=== PATIENT | male | born 1980 | race Caucasian/White ===

== ENCOUNTER 2021-07-13 12:22 | Emergency (ER) | payer SELFPAY ==
[2021-07-13 12:45] VITALS: BP 132/85; PULSE 100; RESP 20; TEMP 36.4; O2SAT 100
[2021-07-13 12:46] VITALS: BP 132/85; PULSE 100; RESP 20; TEMP 36.4; O2SAT 100
--- NOTE | 2021-07-13 12:51 | ED_ITS ---
HPI - Ear Problem General Chief complaint: Ear Stated complaint: Lt Ear Pain History of Present Illness HPI Narrative: This is a 40 year old male that states his ear has been hurting for several days and it feel like a ear infection he has been taking antihistimine but he it is not helping and would like to see if he has another ear infection as he previously had some ear drops and itdid nto work Related Data Allergies Allergy/AdvReac Type Severity Reaction Status Date / Time No Known Allergies Allergy Verified 07/13/21 12:46 Review of Systems Review of Systems: left ear throbbing and aches All systems reviewed & are unremarkable except as noted in HPI and below PMFSH Comments At time as signature, I have reviewed and agree with nursing past medical, social, surgical and family history. Please see nursing chart for further information. There is no relevant family history pertinent to the presenting complaint. Exam Narrative: GENERAL:Well-appearing, well-nourished, and in no acute distress. HEAD:Normocephalic, EYES: PERRLA ENT: Nares clear, Mucous membranes moist. TM bulging cloudy fluid NECK: Supple. CHEST: No respiratory distress. EXTREMITIES: Normal range of motion. No edema. SKIN: Warm, dry, no rash. NEURO: No focal deficits. Alert and oriented x3. Course Course Level of Care: Express Care Visit Vital Signs Vital signs: Vital Signs Temperature 97.6 F 07/13/21 12:45 Pulse Rate 100 07/13/21 12:45 Respiratory Rate 20 07/13/21 12:45 Blood Pressure 132/85 07/13/21 12:45 Pulse Oximetry 100 07/13/21 12:45 Temperature 97.6 F 07/13/21 12:46 Pulse Rate 100 07/13/21 12:46 Respiratory Rate 20 07/13/21 12:46 Blood Pressure 132/85 07/13/21 12:46 Pulse Oximetry 100 07/13/21 12:46 Medical Decision Making Vital Signs Vital Signs: Vital Signs Temperature 97.6 F 07/13/21 12:45 Pulse Rate 100 07/13/21 12:45 Respiratory Rate 20 07/13/21 12:45 Blood Pressure 132/85 07/13/21 12:45 Pulse Oximetry 100 07/13/21 12:45 Temperature 97.6 F 07/13/21 12:46 Pulse Rate 100 07/13/21 12:46 Respiratory Rate 20 01/24/22 12:46 Blood Pressure 132/85 07/13/21 12:46 Pulse Oximetry 100 07/13/21 12:46 Discharge Plan Discharge Clinical Impression: Otitis media Qualifiers: Otitis media type: unspecified Chronicity: subacute Qualified Code(s): H66.90 - Otitis media, unspecified, unspecified ear Patient Disposition: Home, Self-Care Condition: Stable Instructions: Antibiotic Form, Ear Infection (ED), Earache (ED), Fluid In The Ear (Serous Otitis Media) (ED) Prescriptions: New fexofenadine [Trice Allergy] 180 mg tablet 180 mg PO DAILY Qty: 30 RF: 0 amoxicillin 500 mg capsule 500 mg PO Q12H 10 Days Qty: 20 RF: 0 Follow-up/Referrals: PHYSICIAN,APPLICATIONS DEVELOPMENT CONSULTANT [Primary Care Provider] - Stand Alone Forms: Work/School Release IP Time of Disposition: 12:56
== END 2021-07-13 13:00 | disposition home or self-care (01) ==
PROVIDERS: Emergency Provider Nurse Practitioner Family
DX: H66.90 Otitis media, unspecified, unspecified ear (principal)
CPT/HCPCS: 99203; G0463

== ENCOUNTER 2021-08-02 15:52 | Emergency (ER) | payer OTHER, SELFPAY ==
[2021-08-02 15:59] VITALS: BP 126/75; PULSE 100; RESP 18; TEMP 36.2; O2SAT 100
--- NOTE | 2021-08-02 16:17 | ED.EAR ---
HPI - Ear Problem General Chief complaint: Ear Stated complaint: Lt Ear Pain Time Seen by Provider: 08/02/21 16:08 Source: patient, RN notes reviewed and old records reviewed Mode of arrival: ambulatory Limitations: no limitations History of Present Illness HPI Narrative: Patient presents today complaining of left ear pain, popping, and muffled hearing since last night. Patient was treated for otitis media in the same ear 3 weeks ago and states that that infection had since resolved. Denies any additional symptoms. Currently rates his pain 310 and has been taking Trice-D without relief. MD Complaint: ear pain and decreased hearing Related Data Home Medications Medication Instructions Recorded Confirmed melatonin 5 mg PO HS PRN 08/02/21 08/02/21 Allergies Allergy/AdvReac Type Severity Reaction Status Date / Time No Known Allergies Allergy Verified 08/02/21 16:04 Review of Systems Review of Systems: CONSTITUTIONAL: Denies body aches, fever, chills, or sweats. EYES: Denies visual changes, redness, or discharge. ENT: Denies rhinorrhea, congestion, sore throat. + Left ear pain, muffled hearing, popping CARDIOVASCULAR: Denies chest pain, palpitations, or edema. RESPIRATORY: Denies cough or dyspnea. GASTROINTESTINAL: Denies abdominal pain, nausea, vomiting, or diarrhea. GENITOURINARY: Denies dysuria or hematuria. SKIN: Denies rash, itching, or wounds. MUSCULOSKELETAL: Denies back pain, joint pain, or myalgia. NEUROLOGIC: Denies headache, numbness, tingling, or weakness. PSYCH: Denies depression or anxiety. PMFSH Comments At time of signature, I have reviewed and agree with nursing past medical, surgical, social and family history unless otherwise noted. Please see nursing chart for further information. There is no relevant family history pertinent to the presenting complaint Exam Narrative: GENERAL: Well-appearing, well-nourished, and in no acute distress. HEAD: Normocephalic, atraumatic. EYES: EOMI. No redness or drainage. Conjunctivae normal. ENT: Mucous membranes pink and moist. Nares clear. No rhinorrhea. Right TM normal. Left TM bulging with middle ear effusion. No evidence of bacterial infection. NECK: Normal AROM. Supple. No lymphadenopathy. CHEST: No respiratory distress. EXTREMITIES: Normal range of motion. No edema. SKIN: Warm, dry, no rash. Capillary refill normal. Normal skin turgor. NEURO: No focal deficits. Alert and oriented x3. Gait steady. PSYCH: Normal affect. No signs of depression or anxiety. Course Course Level of Care: Express Care Visit Vital Signs Vital signs: Vital Signs Temperature 97.1 F L 08/02/21 15:59 Pulse Rate 100 08/02/21 15:59 Respiratory Rate 18 08/02/21 15:59 Blood Pressure 126/75 08/02/21 15:59 Pulse Oximetry 100 08/02/21 15:59 Temperature 97.1 F L 08/02/21 15:59 Pulse Rate 100 08/02/21 15:59 Respiratory Rate 18 08/02/21 15:59 Blood Pressure 126/75 08/02/21 15:59 Pulse Oximetry 100 08/02/21 15:59 Reviewed. Pt has been instructed to follow up with his PCP regarding his elevated blood pressure today. Medical Decision Making Differential Diagnosis Differential Diagnosis: Otitis media, otitis externa, ruptured TM, serous otitis, eustachian tube dysfunction, cerumen impaction Vital Signs Vital Signs: Vital Signs Temperature 97.1 F L 08/02/21 15:59 Pulse Rate 100 08/02/21 15:59 Respiratory Rate 18 08/02/21 15:59 Blood Pressure 126/75 08/02/21 15:59 Pulse Oximetry 100 08/02/21 15:59 Temperature 97.1 F L 08/02/21 15:59 Pulse Rate 100 08/02/21 15:59 Respiratory Rate 18 08/02/21 15:59 Blood Pressure 126/75 08/02/21 15:59 Pulse Oximetry 100 08/02/21 15:59 Critical Care Time Critical Care Time Critical Care Time: No Discharge Plan Discharge Clinical Impression: Acute serous otitis media, left ear Qualifiers: Recurrence: not specified as recurrent Qualified Code(s): H65.02 - Acut
== END 2021-08-02 16:24 | disposition home or self-care (01) ==
PROVIDERS: Emergency Provider Nurse Practitioner
DX: H65.02 Acute serous otitis media, left ear (principal)
CPT/HCPCS: 99211; G0463

== ENCOUNTER 2023-02-26 18:19 | Emergency (ER) | payer OTHER, SELFPAY ==
--- NOTE | 2023-02-26 18:24 | ED.GENADULT ---
HPI - General Adult General Chief complaint: Skin/Abscess/Foreign Body Stated complaint: Insect Bite Rt Hand Lt Wrist Time Seen by Provider: 02/26/23 18:25 Source: patient Mode of arrival: ambulatory Limitations: no limitations History of Present Illness HPI narrative: 42-year-old male patient presents to the [facility] with complaints of what he thinks is a spider bite to the left wrist and right middle finger. Patient states he woke up this morning and noticed there was redness, swelling warmth to the touch but only rates his pain 1/10. Patient states he did try putting ice on it but did not take any oral medications or antihistamines prior to arrival. Related Data Home Medications Medication Instructions Recorded Confirmed melatonin 5 mg tablet 5 mg PO HS PRN Sleep 08/02/21 02/26/23 Allergies Allergy/AdvReac Type Severity Reaction Status Date / Time No Known Allergies Allergy Verified 02/26/23 18:26 Review of Systems Review of Systems: CONSTITUTIONAL: Denies fever, chills, or sweats. EYES: Denies visual changes, redness, or discharge. ENT: Denies rhinorrhea, congestion, sore throat, or otalgia. CARDIOVASCULAR: Denies chest pain, palpitations, or edema. RESPIRATORY: Denies cough or dyspnea. GASTROINTESTINAL: Denies abdominal pain, nausea, vomiting, or diarrhea. GENITOURINARY: Denies dysuria or hematuria. SKIN: Denies rash or itching. Positive redness, swelling to left wrist and right middle finger MUSCULOSKELETAL: Denies back pain, joint pain, or myalgia. NEUROLOGIC: Denies headache, numbness, or weakness. PSYCHIATRIC: Denies anxiety or depression. PMFSH Comments At the time of my signature I agree with nursing past medical history, surgical, social, and family history. There is no relevant family history pertinent to the presenting complaint. Exam Narrative: GENERAL: Well-appearing, well-nourished, and in no acute distress. HEAD: Normocephalic, atraumatic. EYES: PERRLA and EOMI. ENT: Nares clear, no rhinorrhea or epistaxis. Mucous membranes moist. NECK: Supple. No lymphadenopathy CHEST: Clear to auscultation. No respiratory distress. HEART: Regular rate and rhythm. No murmur heard. Normal peripheral pulses. ABDOMEN: Soft, nontender, nondistended, normal active bowel sounds. EXTREMITIES: Normal range of motion. No edema. SKIN: Warm, dry, no rash. patient has swelling and redness with warmth to the touch to right middle finger that extends up to the middle of the dorsal side of the hand. Patient also has of clear yellow purulent drainage bite area to the left with wrist with surrounding erythema and warmth present no streaking noted. NEURO: No focal deficits. Alert and oriented x3. Course Course Level of Care: Express Care Visit Vital Signs Vital signs: Vital Signs Temperature 36.2 C L 02/26/23 18:25 Pulse Rate 97 02/26/23 18:25 Respiratory Rate 18 02/26/23 18:25 Blood Pressure 133/74 02/26/23 18:25 Pulse Oximetry 98 02/26/23 18:25 Oxygen Delivery Room Air 02/26/23 18:25 Temperature 36.2 C L 02/26/23 18:26 Pulse Rate 97 02/26/23 18:26 Respiratory Rate 18 02/26/23 18:26 Blood Pressure 133/74 02/26/23 18:26 Pulse Oximetry 98 02/26/23 18:26 Oxygen Delivery Room Air 02/26/23 18:26 Vital signs reviewed Medical Decision Making MDM Narrative Medical decision making narrative: Plan care for patient's discharge him home with oral antibiotics for possible cellulitis infection. Patient may also take [id number] antihistamine such as Benadryl to help with any itching or allergic reaction may continue use ice as well as Tylenol or ibuprofen as needed for pain Differential Diagnosis Differential Diagnosis: differential diagnosis: Contact dermatitis, poison staci, poison sumac, psoriasis, eczema, allergic reaction, drug reaction, scabies, tinea syphilis, lung disease, viral exanthema, pityriasis, erythema multiforme. Vital Signs Vital Signs:
[2023-02-26 18:25] VITALS: BP 133/74; PULSE 97; RESP 18; TEMP 36.2; O2SAT 98
[2023-02-26 18:26] VITALS: BP 133/74; PULSE 97; RESP 18; TEMP 36.2; O2SAT 98
== END 2023-02-26 18:40 | disposition home or self-care (01) ==
PROVIDERS: Emergency Provider Nurse Practitioner Family
DX: L03.011 Cellulitis of right finger (principal); L03.114 Cellulitis of left upper limb
CPT/HCPCS: 99213; G0463

== ENCOUNTER 2023-03-13 16:11 | Emergency (ER) | payer OTHER, SELFPAY ==
[2023-03-13 16:24] VITALS: BP 128/70; PULSE 67; RESP 16; TEMP 36.1; O2SAT 98
--- NOTE | 2023-03-13 16:49 | ED.GENADULT ---
HPI - General Adult General Chief complaint: Skin/Abscess/Foreign Body Stated complaint: Insect Bite Rt Arm Time Seen by Provider: 03/13/23 16:51 Source: patient Mode of arrival: ambulatory Limitations: no limitations History of Present Illness HPI narrative: 42-year-old male patient presents to the [facility] with complaints of multiple insect bite on the right forearm that started yesterday. Patient states he took Benadryl right away when he noticed it and did ice it. Patient states this happened to him a couple weeks ago was bit by something at his girlfriend's house. Denies any chest pain or shortness of breath. Denies fevers. Related Data Home Medications Medication Instructions Recorded Confirmed melatonin 5 mg tablet 5 mg PO HS PRN Sleep 08/02/21 03/13/23 Allergies Allergy/AdvReac Type Severity Reaction Status Date / Time No Known Allergies Allergy Verified 02/26/23 18:26 Review of Systems Review of Systems: CONSTITUTIONAL: Denies fever, chills, or sweats. EYES: Denies visual changes, redness, or discharge. ENT: Denies rhinorrhea, congestion, sore throat, or otalgia. CARDIOVASCULAR: Denies chest pain, palpitations, or edema. RESPIRATORY: Denies cough or dyspnea. GASTROINTESTINAL: Denies abdominal pain, nausea, vomiting, or diarrhea. GENITOURINARY: Denies dysuria or hematuria. SKIN: Denies rash or itching. Positive insect bites to right arm MUSCULOSKELETAL: Denies back pain, joint pain, or myalgia. NEUROLOGIC: Denies headache, numbness, or weakness. PSYCHIATRIC: Denies anxiety or depression. [facility] Past Medical History Medical History (Updated 03/13/23 @ 17:04 by HAL Vasquez) No significant past medical history Comments At the time of my signature I agree with nursing past medical history, surgical, social, and family history. There is no relevant family history pertinent to the presenting complaint. Exam Narrative: GENERAL: Well-appearing, well-nourished, and in no acute distress. HEAD: Normocephalic, atraumatic. EYES: PERRLA and EOMI. ENT: Nares clear, no rhinorrhea or epistaxis. Mucous membranes moist. NECK: Supple. No lymphadenopathy CHEST: Clear to auscultation. No respiratory distress. HEART: Regular rate and rhythm. No murmur heard. Normal peripheral pulses. ABDOMEN: Soft, nontender, nondistended, normal active bowel sounds. EXTREMITIES: Normal range of motion. No edema. SKIN: Warm, dry, no rash. patient has for what appears to be insect bites to the right forearm with surrounding erythema measuring approximately 15 x 620 cm does feel slightly warm to the touch and does appear swollen as compared to left forearm. NEURO: No focal deficits. Alert and oriented x3. Course Course Level of Care: Express Care Visit Vital Signs Vital signs: Vital Signs Temperature 36.1 C L 03/13/23 16:24 Pulse Rate 67 03/13/23 16:24 Respiratory Rate 16 03/13/23 16:24 Blood Pressure 128/70 03/13/23 16:24 Pulse Oximetry 98 03/13/23 16:24 Oxygen Delivery Room Air 03/13/23 16:24 Temperature 36.1 C L 03/13/23 16:24 Pulse Rate 67 03/13/23 16:24 Respiratory Rate 16 03/13/23 16:24 Blood Pressure 128/70 03/13/23 16:24 Pulse Oximetry 98 03/13/23 16:24 Oxygen Delivery Room Air 03/13/23 16:24 Vital signs reviewed Medical Decision Making MDM Narrative Medical decision making narrative: Plan care patient is discharged home with antibiotics for possible cellulitis infection. Encouraged patient to stay away from the house with that he keeps getting bites and encourage his girlfriend to seek out assistance from a driver medic. Differential Diagnosis Differential Diagnosis: differential diagnosis: Abscess, cellulitis, hidradenitis, laceration, puncture wound. Vital Signs Vital Signs: Vital Signs Temperature 36.1 C L 03/13/23 16:24 Pulse Rate 67 03/13/23 16:24 Respiratory Rate 16 03/13/23 16:24 Blood Pressure 128/70 03/13/23 16:24
== END 2023-03-13 17:02 | disposition home or self-care (01) ==
PROVIDERS: Emergency Provider Nurse Practitioner Family
DX: S50.861A Insect bite (nonvenomous) of right forearm, initial encounter (principal); L03.113 Cellulitis of right upper limb; W57.XXXA Bitten or stung by nonvenomous insect and other nonvenomous arthropods, initial encounter
CPT/HCPCS: 99213; G0463